=== PATIENT | male | born 1960 | race Caucasian/White ===

== ENCOUNTER 2019-09-18 06:53 | Day surgery (SDC) | payer OTHER, MEDICAID ==
[~2019-09-18] VITALS: Ht 172.7 cm; Wt 106.6 kg
[2019-09-18] MEDS ORDERED: fentaNYL CITRATE/PF 100 MCG/2 ML AMP ONE (07:59)
[2019-09-18] MEDS ORDERED: MIDAZOLAM HCL 5 MG/5 ML VIAL ONE ×2 (07:59→08:00)
[2019-09-18] MEDS ORDERED: SIMETHICONE 40 MG/0.6 ML ML ONE (08:00)
[2019-09-18 10:09] VITALS: BP_SYST 125
== END 2019-09-18 09:40 | disposition home or self-care (01) ==
LOC: SMU 06:53 → SDS 06:53
PROVIDERS: ATTEND Surgery
DX: K62.5 Hemorrhage of anus and rectum (principal); K64.8 Other hemorrhoids; R73.09 Other abnormal glucose
CPT/HCPCS: 45378; 82962; 99152; G0378; J2250; J3010

== ENCOUNTER 2020-01-13 15:40 | Emergency (ER) | payer OTHER, MEDICAID ==
[~2020-01-13] VITALS: Ht 172.7 cm; Wt 81.6 kg
[2020-01-13 15:50] VITALS: BP_SYST 187
[2020-01-13] MEDS ORDERED: cloNIDine HCL 0.1 MG TABLET PO ONE (16:30)
[2020-01-13 20:12] VITALS: BP_SYST 117
== END 2020-01-13 20:12 | disposition home or self-care (01) ==
LOC: SED 15:40
DX: I10 Essential (primary) hypertension (principal)
CPT/HCPCS: 71045; 82962; 93005; 99285